=== PATIENT | male | born 1980 | race Caucasian/White ===

== ENCOUNTER 2019-06-29 20:05 | Emergency (ER) | payer OTHER ==
[~2019-06-29] VITALS: Ht 182.9 cm; Wt 77.1 kg
== END 2019-06-30 12:39 | disposition home or self-care (01) ==
LOC: ER 20:05 → EDBD 20:05 → ER 20:42
DX: S31.12 Laceration with foreign body of abdominal wall without penetration into peritoneal cavity (principal); T63.511A Toxic effect of contact with stingray, accidental (unintentional), initial encounter; Y92.832 Beach as the place of occurrence of the external cause; Y93.19 Activity, other involving water and watercraft; Y99.8 Other external cause status

== ENCOUNTER 2019-07-05 08:35 | Emergency (ER) | payer OTHER ==
[~2019-07-05] VITALS: Ht 182.9 cm; Wt 79.8 kg
== END 2019-07-05 14:30 | disposition home or self-care (01) ==
LOC: ER 08:35
DX: S31.12 Laceration with foreign body of abdominal wall without penetration into peritoneal cavity (principal); T63.511D Toxic effect of contact with stingray, accidental (unintentional), subsequent encounter; R60.0 Localized edema

== ENCOUNTER 2020-05-19 21:36 | Emergency (ER) | payer OTHER ==
[~2020-05-19] VITALS: Ht 182.9 cm; Wt 79.4 kg
[2020-05-19] MEDS ORDERED: ACID REDUCER20 M1 (21:54)
== END 2020-05-19 22:57 | disposition home or self-care (01) ==
LOC: ER 21:36
DX: S01.352A Open bite of left ear, initial encounter (principal); W54.0XXA Bitten by dog, initial encounter; Y93.89 Activity, other specified; Y92.098 Other place in other non-institutional residence as the place of occurrence of the external cause; Y99.8 Other external cause status

== ENCOUNTER → 2021-12-02 | Emergency (ER) | payer OTHER ==
[~2021-12-02] VITALS: Ht 180.3 cm; Wt 88.5 kg
[~2021-12-02] MED LIST: ACID REDUCER20 M1; MEDROLPACK PO; ZITHROMAX500 MG PO
== END | disposition home or self-care (01) ==
LOC: ER 09:51
DX: J06.9 Acute upper respiratory infection, unspecified (principal); G47.33 Obstructive sleep apnea (adult) (pediatric); Z99.89 Dependence on other enabling machines and devices; Z20.822 Contact with and (suspected) exposure to COVID-19